=== PATIENT | male | born 1980 | race Native Hawaiian/Other Pacific Islander ===

== ENCOUNTER 2019-03-21 19:15 | Emergency (ER) | payer BC ==
[~2019-03-21] VITALS: Ht 185.4 cm; Wt 95.3 kg
[2019-03-21] MEDS ORDERED: AMLODIPINE BESYLATE PO (19:30)
[2019-03-21 19:41] LABS: PLATELET COUNT 328 K/uL (142-355)
[2019-03-21 19:52] LABS: POTASSIUM 3.2 mmol/L (3.6-5.2); SODIUM 142 mmol/L (136-145)
[2019-03-21 22:15] VITALS: BP 138/99; TEMP 98.8
== END 2019-03-21 22:15 | disposition home or self-care (01) ==
LOC: ED 19:15
PROVIDERS: Family Medicine
DX: R07.89 Other chest pain (principal); M54.10 Radiculopathy, site unspecified; R05 Cough; M79.601 Pain in right arm
CPT/HCPCS: 36415; 80053; 80307; 81000; 82550; 84484; 85027; 87088; 93005; 99283